=== PATIENT | female | born 2000 | race Caucasian/White ===

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

== ENCOUNTER 2022-01-07 12:34 | Emergency (ER) | payer BC, MEDICAID ==
--- NOTE | 2022-01-07 13:49 | XRAY ---
Indication: Abdomen pain. Two-dimensional transabdominal pelvic sonogram performed. Comparison: November 05, 2018 Urinary bladder not adequately distended producing poor acoustic window. Uterus anteverted measuring 6.5 x 2.8 x 3.4 cm. No focal solid/cystic uterine mass. Endometrial stripe measures 4.5 mm. No endometrial cavity mass or fluid collection. Right ovary measures 2.2 x 2.8 x 2.6 cm and the left measures 2.3 x 1.9 x 2.1 cm. Normal color perfusion bilaterally. No suspicious adnexal mass or free fluid. Impression: Grossly negative transabdominal pelvic sonogram. Patient refused transvaginal sonogram.
[2022-01-07 14:16] LABS: ALBUMIN 4.2 g/dL (3.5-5.0); ALKALINE PHOSPHATASE 73 U/L (38-126); ANION GAP 11.5 MEQ/L (5-15); BLOOD UREA NITROGEN 10 mg/dL (7-17); CHLORIDE 106 mmol/L (98-107); Calcium 9.4 mg/dL (8.4-10.2); Carbon Dioxide 24 mmol/L (22-30); Creatinine 1 0.56 mg/dL (0.52-1.04); EST GLOMERULAR FILTRATION RATE > 60.0 ML/MIN; Glucose 102 mg/dL (74-106); Potassium 3.4 mmol/L (3.5-5.1); SGOT/AST 17 U/L (14-36); SGPT/ALT 15 U/L (0-35); SODIUM 138 mmol/L (137-145); Total Protein 7.3 g/dL (6.3-8.2)
[2022-01-07 14:27] LABS: Appearance CLOUDY (CLEAR); Bilirubin SMALL (NEGATIVE); Glucose NEGATIVE (NEGATIVE); Specific Gravity 1.025 (1.005-1.025)
[2022-01-07 14:28] LABS: Dipstick done @ ? MAIN LAB; Ketones TRACE (NEGATIVE); Nitrite POSITIVE (NEGATIVE); Ph 8.5 (5-6); Protein,Urine Dip 100 (Negative); RBC LARGE Ery/ul (0-5); Urobilinogen 1 mg/dL (0-1)
[2022-01-07] MEDS ORDERED: MORPHINE SULFATE 4 MG INJ IV ONE (14:30)
[2022-01-07 14:32] LABS: Epithelial Cells RARE /HPF (FEW); Mucus SLIGHT /HPF (NEGATIVE); WBC 51-100 /HPF (0-5)
[2022-01-07] MEDS ORDERED: MORPHINE SULFATE 4 MG INJ ONE (14:32)
[2022-01-07 14:50] LABS: Absolute Neutrophil Ct (ANC) 11.48 (1.4-6.9); Basophil (Absolute #) 0.02 (0-0.4); Eosinophil % 0.4 % (0.00-5.0); Eosinophil (Absolute #) 0.06 (0-0.5); Hematocrit 41.2 % (35-47); Hemoglobin 14.1 gm/dl (12.0-16.0); Lymphocyte (Absolute #) 1.68 (1.0-4.6); Lymphocytes % 11.8 % (24.0-44.0); Mean Cell Volume 97.2 fl (78-100); Mean Corpuscular Hemoglobin 33.3 pg (26-32); Mean Corpuscular Hgb Concent. 34.2 g/dl (32-36); Mean Platelet Volume 12.2 fl (7.5-11.0); Monocyte (Absolute #) 1.05 (0.0-1.3); Monocytes % 7.3 % (0.0-12.0); Neutrophil % 80.4 % (36.0-66.0); Platelet Count 244 K/mm3 (150-450); Red Blood Count 4.24 M/mm3 (4.1-5.4); Red Cell Distribution Width 12.4 % (11.5-14.0); White Blood Count 14.3 K/mm3 (4.0-10.5)
[2022-01-07 14:54] LABS: RBC >101 /HPF (0-2)
[2022-01-07 14:55] LABS: Urine Cultured Indicated? YES
--- NOTE | 2022-01-07 14:57 | ERPHSYRPT ---
- History of Present Illness Time Seen by Provider: 01/07/22 13:15 Historian: patient Exam Limitations: no limitations Patient Subjective Stated Complaint: Pelvic pain Triage Nursing Assessment: Patient brought back to ED via w/c and transferred se lf to bed. Patient A+O X3. Patient's skin pink, warm and dry. Patient complains of pelvic pain that started 3 hours ago constant sharp pain. Patient states she started per menstrual cycle last night. Patient denies N/V or diarrhea. Patient complains of lower pelvic pain 9/10 constant sharp pain. Physician History: Patient is an 20-year-old female presents to emergency department for evaluation of pelvic pain. Patient states pelvic pain started approximately 3 hours prior to arrival. She advises that she started her period last night. Pain described as a constant sharp sensation. No radiation. Pain rated 9 out of 10. No trauma no fever. No recent sexual activity. Patient denies abdominal pain. No nausea or vomiting. No diarrhea. No rash. No chest pain or shortness of breath. Symptoms are constant. Symptoms are moderate in intensity. Palpation reproduces pain. Patient voices no other complaints or concerns at this time. Timing/Duration: today Activities at Onset: none Quality: sharpness Abdominal Pain Onset Location: other (Pelvic pain) Pain Radiation: no radiation Severity of Pain-Max: moderate Severity of Pain-Current: mild Modifying Factors: Improves With: nothing Associated Symptoms: other (Vaginal bleeding) Previous symptoms: no prior history Allergies/Adverse Reactions: orange (food color) Adverse Reaction (Mild, Verified 01/07/22 13:04) Vomiting Hx Tetanus, Diphtheria Vaccination/Date Given: Yes Hx Influenza Vaccination/Date Given: No Hx Pneumococcal Vaccination/Date Given: No Immunizations Up to Date: Yes Travel Risk - International Travel Have you traveled outside of the country in past 3 weeks: No - Coronavirus Screening Are you exhibiting any of the following symptoms?: No Close contact with a COVID-19 positive Pt in past 14-21 Days: No - Vaccine Status Have you recieved a Covid-19 vaccination: No - Review of Systems Constitutional: No Symptoms, No Fever, No Chills Eyes: No Symptoms Ears, Nose, & Throat: No Symptoms Respiratory: No Symptoms, No Cough, No Dyspnea Cardiac: No Symptoms, No Chest Pain, No Edema, No Syncope Abdominal/Gastrointestinal: No Symptoms, No Abdominal Pain, No Nausea, No Vomi ting, No Diarrhea Genitourinary Symptoms: No Symptoms, No Dysuria Musculoskeletal: No Symptoms, No Back Pain, No Neck Pain Skin: No Symptoms, No Rash Neurological: No Symptoms, No Dizziness, No Focal Weakness, No Sensory Changes Psychological: No Symptoms Endocrine: No Symptoms Hematologic/Lymphatic: No Symptoms Immunological/Allergic: No Symptoms All Other Systems: Reviewed and Negative - Past Medical History Pertinent Past Medical History: Yes Neurological History: No Pertinent History ENT History: No Pertinent History Cardiac History: No Pertinent History Respiratory History: Asthma Endocrine Medical History: No Pertinent History Musculoskeletal History: No Pertinent History GI Medical History: No Pertinent History History: No Pertinent History Psycho-Social History: Anxiety, Depression, Other Female Reproductive Disorders: No Pertinent History Other Medical History: HX OF CYST REMOVALS TAILBONE, GROIN AND ARMPIT. times 2, has Hx of recurring cysts,PTSD, - Past Surgical History Past Surgical History: Yes Neuro Surgical History: No Pertinent History Cardiac: No Pertinent History Respiratory: No Pertinent History Gastrointestinal: No Pertinent History Genitourinary: No Pertinent History Musculoskeletal: No Pertinent History Female Surgical History: Other Other Surgical History: tail bone,armpit, cyst removal times 3 - Social History Smoking Status: Current every day smoker How long have you smoked: 1 yr Exposure to second hand smoke: Yes Drug Use: none Patient Lives Alone: No Significant Family History: no pertinent family hx - Female History Hx Last Menstrual Period: currently Hx Now: No - Nursing Vital Signs Nursing Vital Signs: Initial Vital Signs Temperature 97.0 F 01/07/22 13:04 Pulse Rate 79 01/07/22 13:04 Respiratory Rate 18 01/07/22 13:04 Blood Pressure 141/77 01/07/22 13:04 O2 Sat by Pulse Oximetry 100 01/07/22 13:04 Pain Scale Pain Intensity 8 - Physical Exam General Appearance: no apparent distress, alert Eye Exam: PERRL/EOMI, eyes nml inspection Ears, Nose, Throat Exam: normal ENT inspection, TMs normal, pharynx normal, moist mucous membranes Neck Exam: normal inspection, non-tender, supple, full range of motion Respiratory Exam: normal breath sounds, lungs clear, airway intact, No respiratory distress Cardiovascular Exam: regular rate/rhythm, normal heart sounds, normal peripheral pulses Gastrointestinal/Abdomen Exam: soft, normal bowel sounds, No tenderness, No mass Pelvic Exam: normal external exam, vaginal bleeding, No adnexal tenderness, No adnexal mass, No cervical motion tenderness, No uterine tenderness, No vaginal discharge Back Exam: normal inspection, normal range of motion, No CVA tenderness, No vertebral tenderness Extremity Exam: normal inspection, normal range of motion, pelvis stable Neurologic Exam: alert, oriented x 3, cooperative, pump mechanic II-XII nml as tested, normal mood/affect, nml cerebellar function, sensation nml, No motor deficits Skin Exam: normal color, warm, dry Lymphatic Exam: No adenopathy SpO2 Interpretation: normal SpO2: 100 O2 Delivery: Room Air - Course Nursing assessment & vital signs reviewed: Yes - Radiology Ultrasound Exam Pelvis Ultrasound: discussed w/radiologist (Per discussion with cnc grinder ultrasound pelvis is negative. No torsion.) Ordered Tests: Active Orders 24 hr Category Date Time Status PELVIC [US] Stat Exams 01/07/22 13:06 Completed CBC W DIFF Stat Lab 01/07/22 14:02 Completed CMP Stat Lab 01/07/22 14:02 Completed CULTURE,URINE Stat Lab 01/07/22 13:09 Received HCG,QUALITATIVE URINE Stat Lab 01/07/22 13:09 Completed Medication Summary Discontinued Medications Generic Name Dose Route Start Last Admin Trade Name Freq PRN Reason Stop Dose Admin Ceftriaxone Sodium/Dextrose 1 g in 50 mls @ 100 mls/hr 01/07/22 15:00 01/07/22 15:38 Rocephin 1 Gm-D5w 50 Ml Bag IV 01/07/22 15:29 Infused STAT STA Infusion Ceftriaxone Sodium/Dextrose Confirm 01/07/22 15:03 Rocephin 1 Gm-D5w 50 Ml Bag Administered 01/07/22 15:04 Dose 1 g in 50 mls @ ud IV .STK-MED ONE Ketorolac Tromethamine 30 mg 01/07/22 15:39 Ketorolac Tromethamine 30 Mg/Ml Inj IV 01/07/22 15:40 STAT ONE Morphine Sulfate 4 mg 01/07/22 14:30 01/07/22 14:33 Morphine Sulfate 4 Mg/Ml Injection IV 01/07/22 14:31 4 mg STAT ONE Administration Morphine Sulfate Confirm 01/07/22 14:32 Morphine Sulfate 4 Mg/Ml Injection Administered 01/07/22 14:33 Dose 4 mg .ROUTE .STK-MED ONE Potassium Chloride 40 meq 04/18/22 15:01 01/07/22 15:05 Potassium Chloride 10 Meq Tablet PO 01/07/22 15:02 40 meq STAT ONE Administration Potassium Chloride Confirm 01/07/22 15:03 Potassium Chloride 10 Meq Tablet Administered 01/07/22 15:04 Dose 40 meq PO .K[facility] ONE Lab/Rad Data: Laboratory Result Diagrams 01/07/22 14:02 01/07/22 14:02 Laboratory Results 01/07/22 01/07/22 01/07/22 Range/Units 14:02 14:02 13:09 WBC 14.3 H (4.0-10.5) K/mm3 RBC 4.24 (4.1-5.4) M/mm3 Hgb 14.1 (12.0-16.0) gm/dl Hct 41.2 (35-47) % MCV 97.2 (78-100) fl MCH 33.3 H (26-32) pg MCHC 34.2 (32-36) g/dl RDW 12.4 (11.5-14.0) % Plt Count 244 (150-450) K/mm3 MPV 12.2 H (7.5-11.0) fl Gran % 80.4 H (36.0-66.0) % Eos # (Auto) 0.06 (0-0.5) Absolute Lymphs (auto) 1.68 (1.0-4.6) Absolute Monos (auto) 1.05 (0.0-1.3) Lymphocytes % 11.8 L (24.0-44.0) % Monocytes % 7.3 (0.0-12.0) % Eosinophils % 0.4 (0.00-5.0) % Basophils % 0.1 (0.0-0.4) % Absolute Granulocytes 11.48 H (1.4-6.9) Basophils # 0.02 (0-0.4) Sodium 138 (137-145) mmol/L Potassium 3.4 L (3.5-5.1) mmol/L Chloride 106 (98-107) mmol/L Carbon Dioxide 24 (22-30) mmol/L Anion Gap 11.5 (5-15) MEQ/L BUN 10 (7-17) mg/dL Creatinine 0.56 (0.52-1.04) mg/dL Estimated GFR > 60.0 ML/MIN Glucose 102 (74-106) mg/dL Calcium 9.4 (8.4-10.2) mg/dL Total Bilirubin 0.50 (0.2-1.3) mg/dL AST 17 (14-36) U/L ALT 15 (0-35) U/L Alkaline Phosphatase 73 (38-126) U/L Serum Total Protein 7.3 (6.3-8.2) g/dL Albumin 4.2 (3.5-5.0) g/dL Urinalys Dipstick Clnc Urine Color (YELLOW) Urine Appearance (CLEAR) Urine pH (5-6) Ur Specific [place] (1.005-1.025) POC Urine Protein Conf (Negative) Urine Ketones (NEGATIVE) Urine Nitrite (NEGATIVE) Urine Bilirubin (NEGATIVE) Urine Urobilinogen (0-1) mg/dL Urine Leukocytes (NEGATIVE) Urine WBC (Auto) (0-5) /HPF Urine RBC (Auto) (0-2) /HPF U Epithel Cells (Auto) (FEW) /HPF Urine Bacteria (Auto) (NEGATIVE) /HPF Urine RBC (0-5) Gal/ul Urine Mucus (Auto) (NEGATIVE) /HPF Ur Culture Indicated? Urine Glucose (NEGATIVE) mg/dL Urine HCG, Qual NEGATIVE (Negative) 01/07/22 Range/Units 13:09 WBC (4.0-10.5) K/mm3 RBC (4.1-5.4) M/mm3 Hgb (12.0-16.0) gm/dl Hct (35-47) % MCV (78-100) fl MCH (26-32) pg MCHC (32-36) g/dl RDW (11.5-14.0) % Plt Count (150-450) K/mm3 MPV (7.5-11.0) fl Gran % (36.0-66.0) % Eos # (Auto) (0-0.5) Absolute Lymphs (auto) (1.0-4.6) Absolute Monos (auto) (0.0-1.3) Lymphocytes % (24.0-44.0) % Monocytes % (0.0-12.0) % Eosinophils % (0.00-5.0) % Basophils % (0.0-0.4) % Absolute Granulocytes (1.4-6.9) Basophils # (0-0.4) Sodium (137-145) mmol/L Potassium (3.5-5.1) mmol/L Chloride (98-107) mmol/L Carbon Dioxide (22-30) mmol/L Anion Gap (5-15) MEQ/L BUN (7-17) mg/dL Creatinine (0.52-1.04) mg/dL Estimated GFR ML/MIN Glucose (74-106) mg/dL Calcium (8.4-10.2) mg/dL Total Bilirubin (0.2-1.3) mg/dL AST (14-36) U/L ALT (0-35) U/L Alkaline Phosphatase (38-126) U/L Serum Total Protein (6.3-8.2) g/dL Albumin (3.5-5.0) g/dL Urinalys Dipstick Clnc MAIN LAB Urine Color RED (YELLOW) Urine Appearance CLOUDY (CLEAR) Urine pH 8.5 (5-6) Ur Specific [place] 1.025 (1.005-1.025) POC Urine Protein Conf 100 (Negative) Urine Ketones TRACE (NEGATIVE) Urine Nitrite POSITIVE (NEGATIVE) Urine Bilirubin SMALL (NEGATIVE) Urine Urobilinogen 1 (0-1) mg/dL Urine Leukocytes NEGATIVE (NEGATIVE) Urine WBC (Auto) 51-100 (0-5) /HPF Urine RBC (Auto) >101 (0-2) /HPF U Epithel Cells (Auto) RARE (FEW) /HPF Urine Bacteria (Auto) NONE (NEGATIVE) /HPF Urine RBC LARGE (0-5) Gal/ul Urine Mucus (Auto) SLIGHT (NEGATIVE) /HPF Ur Culture Indicated? YES Urine Glucose NEGATIVE (NEGATIVE) mg/dL Urine HCG, Qual (Negative) - Progress Progress: improved Progress Note: Patient reassessed. Pain improved but states not she is got back pain. Patient received Toradol for pain control. Work-up reveals urinary tract infection. Rocephin administered in our ED. Potassium was slightly decreased. Patient received oral potassium. Pelvic exam since nonremarkable. GC chlamydia pending. Patient requesting discharge. Will discharge home. She agrees to follow-up with primary care doctor within 48 hours for evaluation. She voices no other complaints or concerns at this time. Portions of this note were created with voice recognition technology. There may be grammatical, spelling, punctuation or sound alike errors 01/07/22 15:41 Counseled pt/family regarding: lab results, diagnosis, need for follow-up, rad results - Departure Departure Disposition: Home Clinical Impression: Vaginal bleeding, Hypokalemia, Urinary tract infection Condition: Stable Critical Care Time: No Referrals: CANDY GUERRA [Primary Care Provider] - Follow up/PCP as directed Additional Instructions: Discharge/Care Plan JAQUELINE ACE was seen on 01/07/22 in the Emergency Room. The patient was counseled regarding Diagnosis,Lab results, Imaging studies, need for follow up and when to return to the Emergency Room. Prescriptions given: Discharge Note I have spoken with the patient and/or caregivers. I have explained the patient's condition, diagnosis and treatment plan based on the information available to me at this time. I have answered the patient's and/or caregiver's questions and addressed any concerns. The patient and/or caregivers have as good understanding of the patient's diagnosis, condition and treatment plan as can be expected at this point. The vital signs have been stable. The patient's condition is stable and appropriate for discharge from the emergency department. The patient will pursue further outpatient evaluation with the primary care physician or other designated or consulting physician as outlined in the discharge instructions. The patient and/or caregivers are agreeable to this plan of care and follow-up instructions have been explained in detail. The patient and/or caregivers have received these instruction. The patient/and or caregivers are aware that any significant change in condition or worsening of symptoms should prompt an immediate return to this or the closest emergency department or call 911. Prescriptions: Cephalexin Mh 500 mg [Keflex 500 mg] 500 mg PO TID #21 cap
[2022-01-07] MEDS ORDERED: ROCEPHIN 1 Gm-D5w 50 ml Bag** 1 G/50 ML IVPB IV STA (15:00)
[2022-01-07] MEDS ORDERED: Klor Con 10 MEQ PO ONE ×2 (15:01→15:03)
[2022-01-07] MEDS ORDERED: ROCEPHIN 1 Gm-D5w 50 ml Bag** 1 G/50 ML IVPB IV ONE (15:03)
[2022-01-07 15:11] VITALS: BP 107/67; PULSE 88
[2022-01-07] MEDS ORDERED: TORAdol 30 mg Injection IV ONE (15:39)
[2022-01-07] MEDS ORDERED: TORAdol 30 mg Injection ONE (15:43)
[2022-01-07 15:44] VITALS: O2SAT 100
[2022-01-07] MEDS ORDERED: NORCO 5/325 MG ONE (15:48)
[2022-01-07] MEDS ORDERED: NORCO 5/325 MG PO ONE (15:53)
[2022-01-08 09:49] LABS: CHLAMYDIA DNA NOT DETECTED (NEGATIVE); GC DNA Probe NOT DETECTED (NEGATIVE)
== END 2022-01-07 15:59 | disposition home or self-care (01) ==
LOC: ED 12:34
DX: N39.0 Urinary tract infection, site not specified (principal); E87.6 Hypokalemia; N93.9 Abnormal uterine and vaginal bleeding, unspecified; R10.2 Pelvic and perineal pain; Z72.0 Tobacco use
CPT/HCPCS: 36000; 36415; 76856; 80053; 81015; 84703; 85025; 87077; 87086; 87186; 87491; 87591; 96365; 96374; 99284; J0696; J1885; J2270; A9270-GY

== ENCOUNTER 2022-03-23 18:43 | Emergency (ER) | payer BC, MEDICAID ==
[2022-03-23] MEDS ORDERED: MORPHINE SULFATE 4 MG INJ IV ONE (19:10)
[2022-03-23] MEDS ORDERED: Zofran 4 MG/2 ML VIAL IV ONE (19:10)
--- NOTE | 2022-03-23 19:17 | ERPHSYRPT ---
- History of Present Illness Time Seen by Provider: 03/23/22 18:48 Patient Subjective Stated Complaint: Pt states that her lower abdomen feels like she is giving Triage Nursing Assessment: Pt was brought to the ER by her boyfriend, hypertensive, rates pain in abdomen as 10/10, flopping all over the bed and crying, hx of cysts but can't tell me if it feels the same, couldn't tell me if she is on her period although she states she is bleeding at this time, pt states that the pain woke her up at approx 1500 this afternoon, last bowel movement today and reports that it was normal, pulses normal, skin n/w/d Physician History: 22 years old female presented in the ER with chief complaint of sudden onset left lower quadrant/pelvic area sharp shooting cramping pain 10/10 intensity for almost 3 hours prior to arrival without any significant relieving factors. She took 2 Midol's with no relief at all. Patient does report having cramping with menstrual cycle but this pain is being more different and she also started having some bleeding. She did check her home test which was -2 days ago. Timing/Duration: hour(s) (3), sudden, worse Activities at Onset: rest Quality: cramping, sharpness Abdominal Pain Onset Location: LLQ Severity of Pain-Max: severe Severity of Pain-Current: severe Modifying Factors: Worsens With: movement, palpation Allergies/Adverse Reactions: orange (food color) Adverse Reaction (Mild, Verified 03/23/22 19:01) Vomiting ketorolac [From Toradol] Adverse Reaction (Verified 03/23/22 19:01) Home Medications: No Reportable Medications [No Reported Medications] 03/23/22 [History] Hx Tetanus, Diphtheria Vaccination/Date Given: Yes Hx Influenza Vaccination/Date Given: No Hx Pneumococcal Vaccination/Date Given: No Travel Risk - International Travel Have you traveled outside of the country in past 3 weeks: No - Coronavirus Screening Are you exhibiting any of the following symptoms?: No Close contact with a COVID-19 positive Pt in past 14-21 Days: No - Vaccine Status Have you recieved a Covid-19 vaccination: No - Review of Systems Constitutional: No Symptoms Ears, Nose, & Throat: No Symptoms Respiratory: No Symptoms Cardiac: No Symptoms Abdominal/Gastrointestinal: Abdominal Pain Genitourinary Symptoms: Vaginal Bleeding Musculoskeletal: No Symptoms Skin: No Symptoms Neurological: No Symptoms Psychological: No Symptoms Endocrine: No Symptoms Hematologic/Lymphatic: No Symptoms Immunological/Allergic: No Symptoms - Past Medical History Pertinent Past Medical History: Yes Neurological History: No Pertinent History ENT History: No Pertinent History Cardiac History: No Pertinent History Respiratory History: Asthma Endocrine Medical History: No Pertinent History Musculoskeletal History: No Pertinent History GI Medical History: No Pertinent History History: No Pertinent History Psycho-Social History: Anxiety, Depression, Other Female Reproductive Disorders: No Pertinent History Other Medical History: HX OF CYST REMOVALS TAILBONE, GROIN AND ARMPIT. times 2, has Hx of recurring cysts,PTSD, - Past Surgical History Past Surgical History: Yes Neuro Surgical History: No Pertinent History Cardiac: No Pertinent History Respiratory: No Pertinent History Gastrointestinal: No Pertinent History Genitourinary: No Pertinent History Musculoskeletal: No Pertinent History Female Surgical History: Other Other Surgical History: tail bone,armpit, cyst removal times 3 - Social History Smoking Status: Current every day smoker How long have you smoked: 1 yr Exposure to second hand smoke: Yes Drug Use: none Patient Lives Alone: No Significant Family History: no pertinent family hx - Female History Hx Last Menstrual Period: 03/23/2022 Hx Now: No - Nursing Vital Signs Nursing Vital Signs: Initial Vital Signs Temperature 97.4 F 03/23/22 18:52 Pulse Rate 78 03/23/22 18:52 Blood Pressure 149/75 03/23/22 18:52 O2 Sat by Pulse Oximetry 100 03/23/22 18:52 Pain Scale Pain Intensity 6 - Physical Exam General Appearance: no apparent distress, alert Eye Exam: PERRL/EOMI Ears, Nose, Throat Exam: normal ENT inspection Neck Exam: normal inspection, full range of motion Respiratory Exam: normal breath sounds, lungs clear Cardiovascular Exam: regular rate/rhythm, normal heart sounds Gastrointestinal/Abdomen Exam: soft, normal bowel sounds, tenderness (Left lower quadrant) Back Exam: normal inspection, normal range of motion Extremity Exam: normal inspection, normal range of motion Neurologic Exam: alert, oriented x 3, cooperative Skin Exam: normal color SpO2 Interpretation: normal SpO2: 100 O2 Delivery: Room Air Ordered Tests: Active Orders 24 hr Category Date Time Status IV Insertion STAT Care 03/23/22 19:10 Active PELVIS TRANS VAGINAL [US] Stat Exams 03/23/22 19:15 Taken CBC W DIFF Stat Lab 03/23/22 19:25 Completed CMP Stat Lab 03/23/22 19:20 Completed HCG,QUALITATIVE URINE Stat Lab 03/23/22 20:19 Ordered UA W/RFX CULTURE Stat Lab 03/23/22 20:19 Ordered Medication Summary Discontinued Medications Generic Name Dose Route Start Last Admin Trade Name Deirdre PRN Reason Stop Dose Admin Morphine Sulfate 4 mg 03/23/22 19:10 03/23/22 19:23 Morphine Sulfate 4 Mg/Ml Injection IV 03/23/22 19:11 4 mg STAT ONE Administration Morphine Sulfate Confirm 03/23/22 19:23 Morphine Sulfate 4 Mg/Ml Injection Administered 03/23/22 19:24 Dose 4 mg .ROUTE .STK-MED ONE Ondansetron HCl 4 mg 03/23/22 19:10 03/23/22 19:23 Ondansetron Hcl 4 Mg/2 Ml Vial IV 03/23/22 19:11 4 mg STAT ONE Administration Ondansetron HCl Confirm 03/23/22 19:23 Ondansetron Hcl 4 Mg/2 Ml Vial Administered 03/23/22 19:24 Dose 4 mg .ROUTE .STK-MED ONE Lab/Rad Data: Laboratory Result Diagrams 03/23/22 19:25 03/23/22 19:20 Laboratory Results 03/23/22 03/23/22 Range/Units 19:25 19:20 WBC 11.5 H (4.0-10.5) x10^3/uL RBC 4.34 (4.1-5.4) x10^6/uL Hgb 14.5 (12.0-16.0) g/dL Hct 41.6 (35-47) % MCV 95.9 (78-100) fL MCH 33.4 H (26-32) pg MCHC 34.9 (32-36) g/dL RDW 12.2 (11.5-14.0) % Plt Count 256 (150-450) x10^3/uL MPV 10.7 (7.5-11.0) fL Gran % 67.0 H (36.0-66.0) % Immature Gran % (Auto) 0.2 (0.00-0.4) % Nucleat RBC Rel Count 0.0 (0.00-0.1) % Eos # (Auto) 0.11 (0-0.5) x10^3/uL Immature Gran # (Auto) 0.02 (0.00-0.03) x10^3u/L Absolute Lymphs (auto) 2.81 (1.0-4.6) x10^3/uL Absolute Monos (auto) 0.81 (0.0-1.3) x10^3/uL Absolute Nucleated RBC 0.00 (0.00-0.01) x10^3u/L Lymphocytes % 24.4 (24.0-44.0) % Monocytes % 7.0 (0.0-12.0) % Eosinophils % 1.0 (0.00-5.0) % Basophils % 0.4 (0.0-0.4) % Absolute Granulocytes 7.71 H (1.4-6.9) x10^3/uL Basophils # 0.05 (0-0.4) x10^3/uL Sodium 139 (137-145) mmol/L Potassium 3.7 (3.5-5.1) mmol/L Chloride 107 (98-107) mmol/L Carbon Dioxide 20 L (22-30) mmol/L Anion Gap 15.2 H (5-15) MEQ/L BUN 6 L (7-17) mg/dL Creatinine 0.57 (0.52-1.04) mg/dL Estimated GFR > 60.0 ML/MIN Glucose 104 (74-106) mg/dL Calcium 9.5 (8.4-10.2) mg/dL Total Bilirubin 0.50 (0.2-1.3) mg/dL AST 20 (14-36) U/L ALT 19 (0-35) U/L Alkaline Phosphatase 89 (38-126) U/L Serum Total Protein 7.1 (6.3-8.2) g/dL Albumin 4.0 (3.5-5.0) g/dL - Progress Progress: improved Progress Note: 03/23/22 20:37 She is given morphine for symptomatic relief. Feeling much better on reevaluation. Ultrasound negative for tore urine or any other acute findings per preliminary report. Lab work grossly unremarkable. Patient is advised to take Tylenol/ibuprofen as needed and outpatient follow-up with [facility]. Discussed signs symptoms of worsening needing return to ER which she seems understanding. Stable for discharge. 03/23/22 20:38 Counseled pt/family regarding: lab results, diagnosis, need for follow-up, rad results - Departure Departure Disposition: Home Clinical Impression: Severe menstrual cramps Condition: Stable Critical Care Time: No Referrals: CANDY GUERRA [Primary Care Provider] - Follow Up with PCP/3 days Instructions: Menstrual Cramps (DC) Additional Instructions: Take Tylenol/ibuprofen as needed. Follow-up with primary care/[facility] THERAPY TEACHER for reevaluation. Return to ER for worsening.
[2022-03-23] MEDS ORDERED: MORPHINE SULFATE 4 MG INJ ONE (19:23)
[2022-03-23] MEDS ORDERED: Zofran 4 MG/2 ML VIAL ONE (19:23)
[2022-03-23 19:28] LABS: Absolute Neutrophil Ct (ANC) 7.71 x10^3/uL (1.4-6.9); Basophil (Absolute #) 0.05 x10^3/uL (0-0.4); Eosinophil (Absolute #) 0.11 x10^3/uL (0-0.5); Hematocrit 41.6 % (35-47); Hemoglobin 14.5 g/dL (12.0-16.0); Lymphocyte (Absolute #) 2.81 x10^3/uL (1.0-4.6); Lymphocytes % 24.4 % (24.0-44.0); Mean Cell Volume 95.9 fL (78-100); Mean Corpuscular Hemoglobin 33.4 pg (26-32); Mean Corpuscular Hgb Concent. 34.9 g/dL (32-36); Mean Platelet Volume 10.7 fL (7.5-11.0); Monocyte (Absolute #) 0.81 x10^3/uL (0.0-1.3); Platelet Count 256 x10^3/uL (150-450); Red Blood Count 4.34 x10^6/uL (4.1-5.4); Red Cell Distribution Width 12.2 % (11.5-14.0); White Blood Count 11.5 x10^3/uL (4.0-10.5)
[2022-03-23 19:46] LABS: ALKALINE PHOSPHATASE 89 U/L (38-126); ANION GAP 15.2 MEQ/L (5-15); BLOOD UREA NITROGEN 6 mg/dL (7-17); CHLORIDE 107 mmol/L (98-107); Calcium 9.5 mg/dL (8.4-10.2); Carbon Dioxide 20 mmol/L (22-30); Creatinine 1 0.57 mg/dL (0.52-1.04); EST GLOMERULAR FILTRATION RATE > 60.0 ML/MIN; Glucose 104 mg/dL (74-106); Potassium 3.7 mmol/L (3.5-5.1); SGOT/AST 20 U/L (14-36); SGPT/ALT 19 U/L (0-35); SODIUM 139 mmol/L (137-145); Total Protein 7.1 g/dL (6.3-8.2)
[2022-03-23 20:26] VITALS: BP 118/72; PULSE 61
[2022-03-23 20:38] VITALS: O2SAT 100
[2022-03-23 20:40] LABS: Appearance SLIGHTLY CLOUDY (CLEAR); Bacteria RARE /HPF (NEGATIVE); Bilirubin NEGATIVE (NEGATIVE); Epithelial Cells FEW /HPF (FEW); Glucose NEGATIVE (NEGATIVE); Mucus SLIGHT /HPF (NEGATIVE); RBC >101 /HPF (0-2)
[2022-03-23 20:41] LABS: Ketones NEGATIVE (NEGATIVE); Nitrite NEGATIVE (NEGATIVE); Ph 8.5 (5-6); Protein,Urine Dip TRACE (Negative); RBC LARGE Ery/ul (0-5); Urine Cultured Indicated? YES; Urobilinogen 0.2 mg/dL (0-1)
[2022-03-23 20:42] LABS: Dipstick done @ ? MAIN LAB
--- NOTE | 2022-03-23 21:44 | XRAY ---
Indication: Cramps. Two-dimensional transvaginal pelvic sonogram performed. Comparison: January 07, 2022. Uterus again anteverted measuring 5.5 x 2.7 x 2.9 cm. No focal solid/cystic uterine mass. Endometrial stripe measures 4.2 mm. No endometrial cavity mass or fluid collection. Right ovary measures 3.4 x 1.9 x 2.9 cm and the left measures 2.0 x 1.0 x 1.9 cm. Normal follicular cysts and perfusion bilaterally. No suspicious adnexal mass or free fluid. Impression: Continued negative transvaginal pelvic sonogram.
== END 2022-03-23 21:07 | disposition home or self-care (01) ==
LOC: ED 18:43
DX: N94.6 Dysmenorrhea, unspecified (principal); R10.32 Left lower quadrant pain; R10.2 Pelvic and perineal pain; Z72.0 Tobacco use; Z28.310 Unvaccinated for COVID-19
CPT/HCPCS: 36000; 36415; 76830; 80053; 81015; 81025; 85025; 87086; 96374; 96375; 99284; J2270; J2405

== ENCOUNTER 2022-12-18 06:18 | Emergency (ER) | payer BC, MEDICAID ==
--- NOTE | 2022-12-18 06:30 | ERPHSYRPT ---
- History of Present Illness Source: patient Exam Limitations: no limitations Timing/Duration: day(s) (2) Cough Quality/Degree: productive cough Possible Cause: occasional episodes Modifying Factors: Improves With: albuterol inhaler Associated Symptoms: cough, headache, nasal congestion, nasal drainage, shortness of breath, sinus infection, sore throat, wheezing, No fever, No chills, No chest pain/soreness, No earache Hx Tetanus, Diphtheria Vaccination/Date Given: Yes Hx Influenza Vaccination/Date Given: No Hx Pneumococcal Vaccination/Date Given: No <WENDY VELA - Last Filed: 12/18/22 07:08> <LEIGH LIN - Last Filed: 12/18/22 08:35> - History of Present Illness Time Seen by Provider: 12/18/22 06:30 Physician History: Presents with rhinorrhea, nasal congestion, headache, sore throat and cough, productive of yellow/green sputum Symptoms present for 2 days. + SOB/wheezing, hx of asthma, using Albuterol inhaler 3x per day for the past 2 days No fever. Patient is almost 12 weeks (WENDY VELA) Allergies/Adverse Reactions: orange (food color) Adverse Reaction (Mild, Verified 12/18/22 06:25) Vomiting ketorolac [From Toradol] Adverse Reaction (Verified 12/18/22 06:25) Home Medications: Buprenorphine HCl/Naloxone HCl [Suboxone 8 mg-2 mg Sl Film] 8 mg SL DAILY 12/18/22 [History] Vit 10/Iron Fum/Folic [Vitafol-Ob Caplet] 1 each PO DAILY 12/18/22 [History] Travel Risk - Vaccine Status Have you recieved a Covid-19 vaccination: No <WENDY VELA - Last Filed: 12/18/22 07:08> - Review of Systems Constitutional: No Symptoms Eyes: No Symptoms Ears, Nose, & Throat: Nose Congestion, Nose Discharge, Sinus Drainage, Throat Pain, Painful Swallowing, No Ear Pain, No Ear Discharge, No Hearing Changes Respiratory: Cough, Dyspnea, Wheezing Cardiac: No Symptoms Abdominal/Gastrointestinal: No Symptoms Genitourinary Symptoms: No Symptoms Musculoskeletal: No Symptoms Skin: No Symptoms Neurological: No Symptoms Psychological: No Symptoms Endocrine: No Symptoms Hematologic/Lymphatic: No Symptoms Immunological/Allergic: No Symptoms <WENDY VELA - Last Filed: 12/18/22 07:08> - Past Medical History Pertinent Past Medical History: Yes Neurological History: No Pertinent History ENT History: No Pertinent History Cardiac History: No Pertinent History Respiratory History: Asthma Endocrine Medical History: No Pertinent History Musculoskeletal History: No Pertinent History GI Medical History: No Pertinent History History: No Pertinent History Psycho-Social History: Anxiety, Depression, Other Female Reproductive Disorders: No Pertinent History Other Medical History: HX OF CYST REMOVALS TAILBONE, GROIN AND ARMPIT. times 2, has Hx of recurring cysts,PTSD, - Past Surgical History Past Surgical History: Yes Neuro Surgical History: No Pertinent History Cardiac: No Pertinent History Respiratory: No Pertinent History Gastrointestinal: No Pertinent History Genitourinary: No Pertinent History Musculoskeletal: No Pertinent History Female Surgical History: Other Other Surgical History: tail bone,armpit, cyst removal times 3 - Social History Smoking Status: Current every day smoker How long have you smoked: 1 yr Exposure to second hand smoke: Yes Drug Use: none Patient Lives Alone: No Significant Family History: no pertinent family hx <WENDY VELA - Last Filed: 12/18/22 07:08> - Physical Exam General Appearance: no apparent distress Eye Exam: eyes nml inspection Ears, Nose, Throat Exam: TMs normal, pharyngeal erythema, tonsillar exudate Neck Exam: supple, full range of motion, lymphadenopathy Respiratory Exam: airway intact, wheezing, No respiratory distress Cardiovascular Exam: regular rate/rhythm, normal heart sounds, capillary refill <2 sec Gastrointestinal/Abdomen Exam: soft, normal bowel sounds, No tenderness, No distention, No guarding Back Exam: normal inspection, normal range of motion Extremity Exam: normal inspection, normal range of motion, No swelling Neurologic Exam: alert, oriented x 3 Skin Exam: normal color, warm, dry Lymphatic Exam: adenopathy SpO2 Interpretation: normal O2 Delivery: Room Air <WENDY VELA - Last Filed: 12/18/22 07:08> - Nursing Vital Signs Nursing Vital Signs: Initial Vital Signs Temperature 98.3 F 12/18/22 06:26 Pulse Rate 100 H 12/18/22 06:26 Respiratory Rate 18 12/18/22 06:26 Blood Pressure 114/74 12/18/22 06:26 O2 Sat by Pulse Oximetry 95 12/18/22 06:26 Pain Scale Pain Intensity 8 - Course Nursing assessment & vital signs reviewed: Yes <WENDY VELA - Last Filed: 12/18/22 07:08> Ordered Tests: Active Orders 24 hr Category Date Time Status IV Insertion STAT Care 12/18/22 06:57 Active CBC W DIFF Stat Lab 12/18/22 07:15 Completed CMP Stat Lab 12/18/22 07:15 Completed Lactic Acid Stat Lab 12/18/22 06:57 Completed MAGNESIUM Stat Lab 12/18/22 07:15 Completed UA W/RFX UR CULTURE Stat Lab 12/18/22 08:21 Ordered Respiratory Therapy Assessment DAILY RT 12/18/22 07:20 Active Medication Summary Discontinued Medications Generic Name Dose Route Start Last Admin Trade Name Deirdre PRN Reason Stop Dose Admin Albuterol/Ipratropium 3 ml 12/18/22 06:57 12/18/22 07:17 Ipratropium/Albuterol Sulfate 3 Ml Ampul.Neb IH 12/18/22 06:58 3 ml STAT ONE Administration Albuterol/Ipratropium Confirm 12/18/22 07:11 Ipratropium/Albuterol Sulfate 3 Ml Ampul.Neb Administered 12/18/22 07:12 Dose 3 ml IH .STK-MED ONE Sodium Chloride 1,000 mls @ 999 mls/hr 12/18/22 06:57 12/18/22 07:23 Sodium Chloride 0.9% 1000 Ml IV 12/18/22 07:57 999 mls/hr .Q1H1M STA Administration Sodium Chloride Confirm 12/18/22 07:21 Sodium Chloride 0.9% 1000 Ml Administered 12/18/22 07:22 Dose 1,000 mls @ ud .ROUTE .STK-MED ONE Lab/Rad Data: Laboratory Result Diagrams 12/18/22 07:15 12/18/22 07:15 Laboratory Results 12/18/22 12/18/22 12/18/22 Range/Units 07:15 07:15 07:15 WBC 10.9 H (4.0-10.5) x10^3/uL RBC 3.83 L (4.1-5.4) x10^6/uL Hgb 12.6 (12.0-16.0) g/dL Hct 36.0 (35-47) % MCV 94.0 (78-100) fL MCH 32.9 H (26-32) pg MCHC 35.0 (32-36) g/dL RDW 11.9 (11.5-14.0) % Plt Count 190 (150-450) x10^3/uL MPV 11.0 (7.5-11.0) fL Gran % 87.5 H (36.0-66.0) % Immature Gran % (Auto) 0.2 (0.00-0.4) % Nucleat RBC Rel Count 0.0 (0.00-0.1) % Eos # (Auto) 0.04 (0-0.5) x10^3/uL Immature Gran # (Auto) 0.02 (0.00-0.03) x10^3u/L Absolute Lymphs (auto) 0.74 L (1.0-4.6) x10^3/uL Absolute Monos (auto) 0.51 (0.0-1.3) x10^3/uL Absolute Nucleated RBC 0.00 (0.00-0.01) x10^3u/L Lymphocytes % 6.8 L (24.0-44.0) % Monocytes % 4.7 (0.0-12.0) % Eosinophils % 0.4 (0.00-5.0) % Basophils % 0.4 (0.0-0.4) % Absolute Granulocytes 9.56 H (1.4-6.9) x10^3/uL Basophils # 0.04 (0-0.4) x10^3/uL Sodium 136 L (137-145) mmol/L Potassium 3.5 (3.5-5.1) mmol/L Chloride 102 (98-107) mmol/L Carbon Dioxide 26 (22-30) mmol/L Anion Gap 11.9 (5-15) MEQ/L BUN 6 L (7-17) mg/dL Creatinine 0.47 L (0.52-1.04) mg/dL Estimated GFR > 60.0 ML/MIN Glucose 97 (74-106) mg/dL Lactic Acid (0.4-2.0) Calcium 9.3 (8.4-10.2) mg/dL Magnesium 1.9 (1.6-2.3) mg/dL Total Bilirubin 0.40 (0.2-1.3) mg/dL AST 20 (14-36) U/L ALT 20 (0-35) U/L Alkaline Phosphatase 60 (38-126) U/L Serum Total Protein 7.1 (6.3-8.2) g/dL Albumin 4.0 (3.5-5.0) g/dL Influenza Type A Ag NEGATIVE (NEGATIVE) Influenza Type B Ag NEGATIVE (NEGATIVE) RSV (PCR) NEGATIVE (NEGATIVE) SARS-CoV-2 (PCR) NEGATIVE (NEGATIVE) Group A Strep Antibody NOT DETECTED (NEGATIVE) 12/18/22 Range/Units 06:57 WBC (4.0-10.5) x10^3/uL RBC (4.1-5.4) x10^6/uL Hgb (12.0-16.0) g/dL Hct (35-47) % MCV (78-100) fL MCH (26-32) pg MCHC (32-36) g/dL RDW (11.5-14.0) % Plt Count (150-450) x10^3/uL MPV (7.5-11.0) fL Gran % (36.0-66.0) % Immature Gran % (Auto) (0.00-0.4) % Nucleat RBC Rel Count (0.00-0.1) % Eos # (Auto) (0-0.5) x10^3/uL Immature Gran # (Auto) (0.00-0.03) x10^3u/L Absolute Lymphs (auto) (1.0-4.6) x10^3/uL Absolute Monos (auto) (0.0-1.3) x10^3/uL Absolute Nucleated RBC (0.00-0.01) x10^3u/L Lymphocytes % (24.0-44.0) % Monocytes % (0.0-12.0) % Eosinophils % (0.00-5.0) % Basophils % (0.0-0.4) % Absolute Granulocytes (1.4-6.9) x10^3/uL Basophils # (0-0.4) x10^3/uL Sodium (137-145) mmol/L Potassium (3.5-5.1) mmol/L Chloride (98-107) mmol/L Carbon Dioxide (22-30) mmol/L Anion Gap (5-15) MEQ/L BUN (7-17) mg/dL Creatinine (0.52-1.04) mg/dL Estimated GFR ML/MIN Glucose (74-106) mg/dL Lactic Acid 1.5 (0.4-2.0) Calcium (8.4-10.2) mg/dL Magnesium (1.6-2.3) mg/dL Total Bilirubin (0.2-1.3) mg/dL AST (14-36) U/L ALT (0-35) U/L Alkaline Phosphatase (38-126) U/L Serum Total Protein (6.3-8.2) g/dL Albumin (3.5-5.0) g/dL Influenza Type A Ag (NEGATIVE) Influenza Type B Ag (NEGATIVE) RSV (PCR) (NEGATIVE) SARS-CoV-2 (PCR) (NEGATIVE) Group A Strep Antibody (NEGATIVE) <WENDY VELA - Last Filed: 12/18/22 07:08> - Progress Progress: improved, re-examined Air Movement: good Blood Culture(s) Obtained: No Antibiotics given: No Counseled pt/family regarding: lab results, diagnosis, need for follow-up <LEIGH LIN - Last Filed: 12/18/22 08:35> - Progress Progress Note: 12/18/22 07:08 Patient signed over to Dr. Lin at [id number]. (WENDY VELA) 12/18/22 07:29 Patient declines chest x-ray. 12/18/22 08:32 This patient's medical issue is 1 of moderate complexity. The level of complexity and the work-up performed is based on review of the patient's past medical history, review of the patient's medication list, review of the patient's drug allergies, review of the patient's history of present illness and physical findings on examination. The results were reviewed by me and I discussed these issues with the patient. Patient's symptoms could be related to seasonal allergies or possibly a viral illness. Patient is . I am advising her to take Tylenol for her sore throat pain. She may also use Benadryl for relief of cough and nasal drainage symptoms. She was also advised to follow-up with her primary care provider/ncr operator for further evaluation and management. (LEIGH LIN) Medical Desision Making - Discussion of managment Reviewed:: Test results Agreed on:: Treatment plan, need for follow-up - Diagnostic Testing Diagnostic test were ordered, analyzed, and reviewed by me: Yes - Risk of complications Low Risk: Low risk of morbidity from additional dx testing or treatment <LEIGH LIN - Last Filed: 12/18/22 08:35> <WENDY VELA - Last Filed: 12/18/22 07:08> - Departure Departure Disposition: Home Critical Care Time: No <LEIGH LIN - Last Filed: 12/18/22 08:35> - Departure Clinical Impression: Nasal congestion, Nasal drainage Condition: Stable Referrals: CANDY GUERRA [Primary Care Provider] - Follow up/PCP as directed Additional Instructions: Drink plenty of fluids. Use Tylenol for pain control. May use Benadryl for nasal drainage and cough relief. Follow-up with your OB/primary care provider today to make arranges for further evaluation and management in the next 3 to 5 days.
[2022-12-18] MEDS ORDERED: Sodium Chloride 0.9% 1000 ML 1,000 ML IV STA (06:57)
[2022-12-18] MEDS ORDERED: DUONEB 0.5-3 MG/3 ml Neb IH ONE ×2 (06:57→07:11)
[2022-12-18 07:19] LABS: Absolute Neutrophil Ct (ANC) 9.56 x10^3/uL (1.4-6.9); BASOPHIL % 0.4 % (0.0-0.4); Basophil (Absolute #) 0.04 x10^3/uL (0-0.4); Eosinophil % 0.4 % (0.00-5.0); Eosinophil (Absolute #) 0.04 x10^3/uL (0-0.5); Hemoglobin 12.6 g/dL (12.0-16.0); IMMATURE GRAN # 0.02 x10^3u/L (0.00-0.03); IMMATURE GRAN % 0.2 % (0.00-0.4); Lymphocyte (Absolute #) 0.74 x10^3/uL (1.0-4.6); Lymphocytes % 6.8 % (24.0-44.0); Mean Corpuscular Hemoglobin 32.9 pg (26-32); Monocyte (Absolute #) 0.51 x10^3/uL (0.0-1.3); Monocytes % 4.7 % (0.0-12.0); Neutrophil % 87.5 % (36.0-66.0); Platelet Count 190 x10^3/uL (150-450); Red Blood Count 3.83 x10^6/uL (4.1-5.4); Red Cell Distribution Width 11.9 % (11.5-14.0); White Blood Count 10.9 x10^3/uL (4.0-10.5)
[2022-12-18] MEDS ORDERED: Sodium Chloride 0.9% 1000 ML 1,000 ML ONE (07:21)
[2022-12-18 07:39] LABS: ALKALINE PHOSPHATASE 60 U/L (38-126); ANION GAP 11.9 MEQ/L (5-15); BLOOD UREA NITROGEN 6 mg/dL (7-17); CHLORIDE 102 mmol/L (98-107); Calcium 9.3 mg/dL (8.4-10.2); Carbon Dioxide 26 mmol/L (22-30); Creatinine 1 0.47 mg/dL (0.52-1.04); EST GLOMERULAR FILTRATION RATE > 60.0 ML/MIN; Glucose 97 mg/dL (74-106); MAGNESIUM 1.9 mg/dL (1.6-2.3); Potassium 3.5 mmol/L (3.5-5.1); SGOT/AST 20 U/L (14-36); SGPT/ALT 20 U/L (0-35); SODIUM 136 mmol/L (137-145); Total Protein 7.1 g/dL (6.3-8.2)
[2022-12-18 07:55] LABS: Group A Strep NOT DETECTED (NEGATIVE)
[2022-12-18 08:07] LABS: INFLUENZA A NEGATIVE (NEGATIVE); INFLUENZA B NEGATIVE (NEGATIVE); RESPIRATORY SYNCTIAL VIRUS NEGATIVE (NEGATIVE); SARS-CoV-2 Xpert Express NEGATIVE (NEGATIVE)
[2022-12-18] MEDS ORDERED: LOPRESSOR INJECTION IV ONE (09:06)
[2022-12-18 09:14] LABS: Appearance Clear (Clear); Bacteria Rare /HPF (None Seen); Bilirubin Negative (Negative); Blood Negative (Negative); Epithelial Cells None Seen /HPF (None Seen); Glucose, Urine Negative (Negative); Hyaline Casts NONE SEEN /LPF (0-2); Ketones Negative (Negative); Leukocyte Esterase Trace (Negative); Nitrite Negative (Negative); Protein,Urine Dip Negative (Negative); RBC 0-2 /HPF (0-5)
[2022-12-18 09:17] LABS: ADD URINE CULTURE? NO (NO)
[2022-12-18 09:36] VITALS: BP 119/65; PULSE 70; O2SAT 97
== END 2022-12-18 09:36 | disposition home or self-care (01) ==
LOC: ED 06:18
DX: R09.81 Nasal congestion (principal); J34.89 Other specified disorders of nose and nasal sinuses; R51.9 Headache, unspecified; J02.9 Acute pharyngitis, unspecified; R05.1 Acute cough; Z79.891 Long term (current) use of opiate analgesic; Z28.310 Unvaccinated for COVID-19; Z72.0 Tobacco use; Z33.1 Pregnant state, incidental
CPT/HCPCS: 0241U; 36000; 36415; 80053; 81001; 83605; 83735; 85025; 87651; 94640; 96360; 99284; A9270-GY

== ENCOUNTER 2024-01-21 23:30 | Emergency (ER) | payer BC, MEDICAID | END 2024-01-22 00:23 | disposition left against medical advice (07) | LOC: ED 23:30 | DX: Z53.21 Procedure and treatment not carried out due to patient leaving prior to being seen by health care provider (principal) ==

== ENCOUNTER 2024-06-27 05:03 | Emergency (ER) | payer BC, MEDICAID, OTHER ==
[2024-06-27 05:20] VITALS: RESP 18; TEMP 97.1
[2024-06-27 05:39] LABS: Appearance Cloudy (Clear); Bacteria Moderate /HPF (None Seen); Bilirubin Negative (Negative); Blood Negative (Negative); Epithelial Cells Moderate /HPF (None Seen); Glucose, Urine Negative (Negative); Hyaline Casts NONE SEEN /LPF (0-2); Ketones Negative (Negative); Leukocyte Esterase Small (Negative); Nitrite Negative (Negative); Protein,Urine Dip Negative (Negative); RBC 0-2 /HPF (0-5); Specific Gravity 1.015 (1.005-1.030); Urobilinogen 0.2 mg/dL (0.2)
--- NOTE | 2024-06-27 05:51 | ERPHSYRPT ---
- History of Present Illness Historian: patient Exam Limitations: no limitations Patient Subjective Stated Complaint: pt states that she is having back pain Triage Nursing Assessment: pt ambulated into the er; pt is axo x4; c/o cristiane flank pain; pt states 9/10 pain to cristiane flank region; tenderness present to cristiane flank region; abd soft, round, tender to RUQ; active bowel sounds in all quads; c/o N/V, denies diarrhea; skin PDW; no respiratory distress present; vitals wnl Timing/Duration: day(s) (4) Activities at Onset: none Quality: sharpness, stabbing Abdominal Pain Onset Location: RUQ Pain Radiation: back Severity of Pain-Max: moderate Severity of Pain-Current: moderate Modifying Factors: Improves With: nothing. Worsens With: movement, palpation, vomiting Associated Symptoms: back, loss of appetite, nausea, vomiting, No chest pain, No diaphoresis, No diarrhea, No fever/chills, No neck pain, No shortness of breath Previous symptoms: no prior history Hx Tetanus, Diphtheria Vaccination/Date Given: No (unknown) Hx Influenza Vaccination/Date Given: No Hx Pneumococcal Vaccination/Date Given: No <WENDY VELA - Last Filed: 06/27/24 06:10> <DUTCH VILLA - Last Filed: 06/27/24 18:43> - History of Present Illness Time Seen by Provider: 06/27/24 05:51 Physician History: The patient presents with severe pain located under the rib cage, which has been ongoing for approximately three to four days. The pain is intermittent and radiates to the upper back. The discomfort is exacerbated by pressure on the area, such as leaning on it or wearing tight clothing. The patient denies any significant correlation between food intake and the pain. However, during episodes of pain, if the patient has eaten recently, they experience vomiting. This has occurred on multiple occasions, with up to four or five episodes of vomiting in a single day. The patient also reports a slight burning sensation during urination, which was experienced a few days prior to the consultation. However, the patient denies any presence of blood in the urine. In an attempt to manage the pain, the patient has been alternating between Tylenol and Aleve, but reports no significant relief from either medication. The patient also takes Suboxone regularly, with the last dose taken on the morning of the consultation. (WENDY VELA) Allergies/Adverse Reactions: orange (food color) Adverse Reaction (Mild, Verified 06/27/24 05:10) Vomiting ketorolac [From Toradol] Adverse Reaction (Verified 06/27/24 05:10) Home Medications: Buprenorphine HCl/Naloxone HCl [Suboxone 8 mg-2 mg Sl Film] 8 mg SL DAILY [History] Travel Risk - International Travel Have you traveled outside of the country in past 3 weeks: No - Emerging Infectious Disease Are you exhibiting symptoms associated with any current EIDs: Yes Symptoms: Abdominal Pain, Vomitting <WENDY VELA - Last Filed: 06/27/24 06:10> - Review of Systems All Other Systems: Reviewed and Negative <WENDY VELA - Last Filed: 06/27/24 06:10> - Past Medical History Pertinent Past Medical History: Yes Neurological History: No Pertinent History ENT History: No Pertinent History Cardiac History: No Pertinent History Respiratory History: Asthma Endocrine Medical History: No Pertinent History Musculoskeletal History: No Pertinent History GI Medical History: No Pertinent History History: No Pertinent History Psycho-Social History: Anxiety, Depression, Other Female Reproductive Disorders: No Pertinent History Other Medical History: HX OF CYST REMOVALS TAILBONE, GROIN AND ARMPIT. times 2, has Hx of recurring cysts,PTSD, - Past Surgical History Past Surgical History: Yes Neuro Surgical History: No Pertinent History Cardiac: No Pertinent History Respiratory: No Pertinent History Gastrointestinal: No Pertinent History Genitourinary: No Pertinent History Musculoskeletal: No Pertinent History Female Surgical History: Other Other Surgical History: tail bone,armpit, cyst removal times 3 Significant Family History: no pertinent family hx - Female History Hx Last Menstrual Period: 2 weeks Hx Now: No - Social History Smoking Status: Current every day smoker How long have you smoked: 1 yr Exposure to second hand smoke: Yes Drug Use: none Patient Lives Alone: No - Social Determinants of Health Will the patient participate in the screening: Yes Do you worry about a steady place to live?: No Do you have any problems with any of the following?: No known problems In the past 12 months,have you had to go without utilities?: No Transportation Issues: No Has anyone in your support network made you feel unsafe?: No Have you or anyone in your house had to go without enough: No <MIRIANWENDY Prieto - Last Filed: 06/27/24 06:10> - Physical Exam General Appearance: no apparent distress, obese Neck Exam: normal inspection, supple, full range of motion Respiratory Exam: normal breath sounds, airway intact, No respiratory distress Cardiovascular Exam: regular rate/rhythm, capillary refill <2 sec, No edema Gastrointestinal/Abdomen Exam: soft, tenderness (RUQ), guarding, rebound (+ Cueto), No distention, No mass Back Exam: No CVA tenderness Neurologic Exam: alert, oriented x 3, cooperative Skin Exam: normal color, warm, dry SpO2 Interpretation: normal SpO2: 99 O2 Delivery: Room Air <WENDY VELA - Last Filed: 06/27/24 06:10> - Nursing Vital Signs Nursing Vital Signs: Initial Vital Signs Temperature 97.1 F 06/27/24 05:11 Pulse Rate 73 06/27/24 05:11 Respiratory Rate 18 06/27/24 05:11 Blood Pressure 139/76 06/27/24 05:11 O2 Sat by Pulse Oximetry 99 06/27/24 05:11 Pain Scale Pain Intensity 4 - Course Nursing assessment & vital signs reviewed: Yes <WENDY VELA - Last Filed: 06/27/24 06:10> Ordered Tests: Active Orders 24 hr Category Date Time Status IV Insertion STAT Care 06/27/24 06:03 Completed NPO (ED) STAT Care 06/27/24 06:03 Completed ABDOMEN AND PELVIS W/0 CONTRAS [CT] Stat Exams 06/27/24 06:04 Completed CBC W DIFF Stat Lab 06/27/24 06:15 Completed CMP Stat Lab 06/27/24 06:15 Completed CULTURE,URINE Stat Lab 06/27/24 05:16 Received HCG QUALITATIVE, SERUM Stat Lab 06/27/24 06:15 Completed LIPASE Stat Lab 06/27/24 06:15 Completed Lactic Acid Stat Lab 06/27/24 06:15 Completed UA W/RFX UR CULTURE Stat Lab 06/27/24 05:16 Completed Urine Triage Profile Stat Lab 06/27/24 06:08 Completed Medication Summary Discontinued Medications Generic Name Dose Route Start Last Admin Trade Name Freq PRN Reason Stop Dose Admin Droperidol 1.25 mg 06/27/24 06:03 06/27/24 06:19 Droperidol 5 Mg/2 Ml Vial IV 06/27/24 06:04 1.25 mg STAT ONE Administration Droperidol Confirm 06/27/24 06:18 Droperidol 5 Mg/2 Ml Vial Administered 06/27/24 06:19 Dose 5 mg .ROUTE .STK-MED ONE Sodium Chloride 1,000 mls @ 999 mls/hr 06/27/24 06:03 06/27/24 07:22 Sodium Chloride 0.9% 1000 Ml IV 06/27/24 07:03 Infused .Q1H1M STA Infusion Ceftriaxone Sodium 1 gm in 100 mls @ 200 mls/hr 06/27/24 06:06 06/27/24 06:52 Rocephin 1 Gm / 100 Ml Nacl IV 06/27/24 06:35 Infused STAT ONE Infusion Sodium Chloride Confirm 06/27/24 06:18 Sodium Chloride 0.9% 1000 Ml Administered 06/27/24 06:19 Dose 1,000 mls @ ud .ROUTE .STK-MED ONE Ceftriaxone Sodium Confirm 06/27/24 06:18 Rocephin 1 Gm / 100 Ml Nacl Administered 06/27/24 06:19 Dose 1 gm in 100 mls @ ud IV .STK-MED ONE Lab/Rad Data: Laboratory Result Diagrams 06/27/24 06:15 06/27/24 06:15 Laboratory Results 06/27/24 06/27/24 06/27/24 Range/Units 06:15 06:15 06:15 WBC (3.98-10.04) x10^3/uL RBC (3.93-5.22) x10^6/uL Hgb (11.2-15.7) g/dL Hct (34.1-44.9) % MCV (79.4-94.8) fL MCH (25.6-32.2) pg MCHC (32.2-35.5) g/dL RDW (11.7-14.4) % Plt Count (182-369) x10^3/uL MPV (9.4-12.3) fL Gran % (34.0-71.1) % Immature Gran % (Auto) (0.001-0.429) % Nucleat RBC Rel Count (0.00-0.2) % Eos # (Auto) (0.04-0.36) x10^3/uL Immature Gran # (Auto) (0.001-0.031) x10^3u/L Absolute Lymphs (auto) (1.18-3.74) x10^3/uL Absolute Monos (auto) (0.24-0.86) x10^3/uL Absolute Nucleated RBC (0.00-0.012) x10^3u/L Lymphocytes % (19.3-51.7) % Monocytes % (4.7-12.5) % Eosinophils % (0.7-5.8) % Basophils % (0.1-1.2) % Absolute Granulocytes (1.56-6.13) x10^3/uL Basophils # (0.01-0.08) x10^3/uL Sodium 140 (135-145) mmol/L Potassium 4.1 (3.5-5.1) mmol/L Chloride 105 (98-107) mmol/L Carbon Dioxide 25 (22-30) mmol/L Anion Gap 14.1 (5-15) MEQ/L BUN 11 (7-17) mg/dL Creatinine 0.61 (0.52-1.04) mg/dL Estimated GFR 129.6 ML/MIN Glucose 105 (74-106) mg/dL Lactic Acid 1.1 (0.4-2.0) Calcium 9.4 (8.4-10.2) mg/dL Total Bilirubin 0.50 (0.2-1.3) mg/dL AST 75 H (14-36) U/L ALT 51 H (0-35) U/L Alkaline Phosphatase 86 (38-126) U/L Serum Total Protein 7.1 (6.3-8.2) g/dL Albumin 4.1 (3.5-5.0) g/dL Lipase 79 (23-300) U/L Serum HCG, Qual NEGATIVE (NEGATIVE) Urine Color (Yellow) Urine Appearance (Clear) Urine pH (4.6-8.0) Ur Specific [place] (1.005-1.030) Urine Protein (Negative) Urine Glucose (UA) (Negative) mg/dL Urine Ketones (Negative) Urine Blood (Negative) Urine Nitrite (Negative) Urine Bilirubin (Negative) Urine Urobilinogen (0.2) mg/dL Ur Leukocyte Esterase (Negative) U Hyaline Cast (Auto) (0-2) /LPF Urine Microscopic RBC (0-5) /HPF Urine Microscopic WBC (0-5) /HPF Ur Epithelial Cells (None Seen) /HPF Urine Bacteria (None Seen) /HPF Urine Culture Reflexed (NO) Urine Opiates Level (NEGATIVE) Ur Methadone (NEGATIVE) Urine Barbiturates (NEGATIVE) Ur Phencyclidine (PCP) (NEGATIVE) Urine Amphetamine (NEGATIVE) U Benzodiazepine Level (NEGATIVE) Urine Cocaine (NEGATIVE) Urine Marijuana (THC) (NEGATIVE) Chlamydia DNA Probe (NEGATIVE) N.gonorrhoeae DNA Probe (NEGATIVE) 06/27/24 06/27/24 06/27/24 Range/Units 06:15 06:08 06:03 WBC 11.6 H (3.98-10.04) x10^3/uL RBC 4.14 (3.93-5.22) x10^6/uL Hgb 13.5 (11.2-15.7) g/dL Hct 39.2 (34.1-44.9) % MCV 94.7 (79.4-94.8) fL MCH 32.6 H (25.6-32.2) pg MCHC 34.4 (32.2-35.5) g/dL RDW 12.0 (11.7-14.4) % Plt Count 238 (182-369) x10^3/uL MPV 11.3 (9.4-12.3) fL Gran % 66.5 (34.0-71.1) % Immature Gran % (Auto) 0.3 (0.001-0.429) % Nucleat RBC Rel Count 0.0 (0.00-0.2) % Eos # (Auto) 0.60 H (0.04-0.36) x10^3/uL Immature Gran # (Auto) 0.04 H (0.001-0.031) x10^3u/L Absolute Lymphs (auto) 2.60 (1.18-3.74) x10^3/uL Absolute Monos (auto) 0.55 (0.24-0.86) x10^3/uL Absolute Nucleated RBC 0.00 (0.00-0.012) x10^3u/L Lymphocytes % 22.4 (19.3-51.7) % Monocytes % 4.7 (4.7-12.5) % Eosinophils % 5.2 (0.7-5.8) % Basophils % 0.9 (0.1-1.2) % Absolute Granulocytes 7.73 H (1.56-6.13) x10^3/uL Basophils # 0.10 H (0.01-0.08) x10^3/uL Sodium (135-145) mmol/L Potassium (3.5-5.1) mmol/L Chloride (98-107) mmol/L Carbon Dioxide (22-30) mmol/L Anion Gap (5-15) MEQ/L BUN (7-17) mg/dL Creatinine (0.52-1.04) mg/dL Estimated GFR ML/MIN Glucose (74-106) mg/dL Lactic Acid (0.4-2.0) Calcium (8.4-10.2) mg/dL Total Bilirubin (0.2-1.3) mg/dL AST (14-36) U/L ALT (0-35) U/L Alkaline Phosphatase (38-126) U/L Serum Total Protein (6.3-8.2) g/dL Albumin (3.5-5.0) g/dL Lipase (23-300) U/L Serum HCG, Qual (NEGATIVE) Urine Color (Yellow) Urine Appearance (Clear) Urine pH (4.6-8.0) Ur Specific [place] (1.005-1.030) Urine Protein (Negative) Urine Glucose (UA) (Negative) mg/dL Urine Ketones (Negative) Urine Blood (Negative) Urine Nitrite (Negative) Urine Bilirubin (Negative) Urine Urobilinogen (0.2) mg/dL Ur Leukocyte Esterase (Negative) U Hyaline Cast (Auto) (0-2) /LPF Urine Microscopic RBC (0-5) /HPF Urine Microscopic WBC (0-5) /HPF Ur Epithelial Cells (None Seen) /HPF Urine Bacteria (None Seen) /HPF Urine Culture Reflexed (NO) Urine Opiates Level NEGATIVE (NEGATIVE) Ur Methadone NEGATIVE (NEGATIVE) Urine Barbiturates NEGATIVE (NEGATIVE) Ur Phencyclidine (PCP) NEGATIVE (NEGATIVE) Urine Amphetamine NEGATIVE (NEGATIVE) U Benzodiazepine Level NEGATIVE (NEGATIVE) Urine Cocaine NEGATIVE (NEGATIVE) Urine Marijuana (THC) NEGATIVE (NEGATIVE) Chlamydia DNA Probe NOT DETECTED (NEGATIVE) N.gonorrhoeae DNA Probe NOT DETECTED (NEGATIVE) 06/27/24 Range/Units 05:16 WBC (3.98-10.04) x10^3/uL RBC (3.93-5.22) x10^6/uL Hgb (11.2-15.7) g/dL Hct (34.1-44.9) % MCV (79.4-94.8) fL MCH (25.6-32.2) pg MCHC (32.2-35.5) g/dL RDW (11.7-14.4) % Plt Count (182-369) x10^3/uL MPV (9.4-12.3) fL Gran % (34.0-71.1) % Immature Gran % (Auto) (0.001-0.429) % Nucleat RBC Rel Count (0.00-0.2) % Eos # (Auto) (0.04-0.36) x10^3/uL Immature Gran # (Auto) (0.001-0.031) x10^3u/L Absolute Lymphs (auto) (1.18-3.74) x10^3/uL Absolute Monos (auto) (0.24-0.86) x10^3/uL Absolute Nucleated RBC (0.00-0.012) x10^3u/L Lymphocytes % (19.3-51.7) % Monocytes % (4.7-12.5) % Eosinophils % (0.7-5.8) % Basophils % (0.1-1.2) % Absolute Granulocytes (1.56-6.13) x10^3/uL Basophils # (0.01-0.08) x10^3/uL Sodium (135-145) mmol/L Potassium (3.5-5.1) mmol/L Chloride (98-107) mmol/L Carbon Dioxide (22-30) mmol/L Anion Gap (5-15) MEQ/L BUN (7-17) mg/dL Creatinine (0.52-1.04) mg/dL Estimated GFR ML/MIN Glucose (74-106) mg/dL Lactic Acid (0.4-2.0) Calcium (8.4-10.2) mg/dL Total Bilirubin (0.2-1.3) mg/dL AST (14-36) U/L ALT (0-35) U/L Alkaline Phosphatase (38-126) U/L Serum Total Protein (6.3-8.2) g/dL Albumin (3.5-5.0) g/dL Lipase (23-300) U/L Serum HCG, Qual (NEGATIVE) Urine Color Yellow (Yellow) Urine Appearance Cloudy A (Clear) Urine pH 8.0 (4.6-8.0) Ur Specific [place] 1.015 (1.005-1.030) Urine Protein Negative (Negative) Urine Glucose (UA) Negative (Negative) mg/dL Urine Ketones Negative (Negative) Urine Blood Negative (Negative) Urine Nitrite Negative (Negative) Urine Bilirubin Negative (Negative) Urine Urobilinogen 0.2 (0.2) mg/dL Ur Leukocyte Esterase Small A (Negative) U Hyaline Cast (Auto) NONE SEEN (0-2) /LPF Urine Microscopic RBC 0-2 (0-5) /HPF Urine Microscopic WBC 11-20 A (0-5) /HPF Ur Epithelial Cells Moderate A (None Seen) /HPF Urine Bacteria Moderate A (None Seen) /HPF Urine Culture Reflexed YES (NO) Urine Opiates Level (NEGATIVE) Ur Methadone (NEGATIVE) Urine Barbiturates (NEGATIVE) Ur Phencyclidine (PCP) (NEGATIVE) Urine Amphetamine (NEGATIVE) U Benzodiazepine Level (NEGATIVE) Urine Cocaine (NEGATIVE) Urine Marijuana (THC) (NEGATIVE) Chlamydia DNA Probe (NEGATIVE) N.gonorrhoeae DNA Probe (NEGATIVE) <WENDY VELA - Last Filed: 06/27/24 06:10> - Progress Progress: improved Counseled pt/family regarding: lab results, diagnosis <DUTCH VILLA - Last Filed: 06/27/24 18:43> - Progress Progress Note: 06/27/24 06:13 Abdominal Pain Severe pain under the right rib cage radiating to the back for the past 3-4 days. Associated with vomiting, especially after eating. No relief with Tylenol or Aleve. Physical exam suggestive of gallbladder pathology. -Order abdominal CT scan to evaluate gallbladder. -CBC, CMP, Lipase ordered -1L NS bolus -Droperidol given for abd pain and nausea due to current use of Suboxone. Urinary Tract Infection Mild dysuria a few days ago. Urinalysis suggestive of UTI. -Start antibiotics for UTI. Opioid Dependence On Suboxone therapy. -Continue Suboxone as prescribed. -Avoid opiods. (WENDY VELA) 06/27/24 08:06 Patient is checked out to me at shift change from Dr. Vela with pending workup. Has pending CT, patient does not want to stay any longer and wants to leave AGAINST MEDICAL ADVICE. She does understand the risk of leaving AMA. Patient and both are involved in decision making. (DUTCH VILLA) Medical Desision Making - Diagnostic Testing Diagnostic test were ordered, analyzed, and reviewed by me: Yes - Risk of complications The pt has a mod risk of morbidity or mortality based on: Need for prescription drug management <DUTCH VILLA - Last Filed: 06/27/24 18:43> <WENDY VELA - Last Filed: 06/27/24 06:10> - Departure Departure Disposition: AMA Critical Care Time: No <DUTCH VILLA - Last Filed: 06/27/24 18:43> - Departure Clinical Impression: Upper abdominal pain Condition: Stable Referrals: GEE YEUNG NP [Primary Care Provider] - Follow up/PCP as directed
[2024-06-27] MEDS ORDERED: ROCEPHIN 1 GM / 100 ML NaCl 1 GM/100 ML IVPB IV ONE (06:18)
[2024-06-27] MEDS ORDERED: Sodium Chloride 0.9% 1000 ML 1,000 ML ONE (06:18)
[2024-06-27] MEDS: Sodium Chloride 0.9% 1000 ML 1,000 ML IV STA (06:19)
[2024-06-27] MEDS: ROCEPHIN 1 GM / 100 ML NaCl 1 GM/100 ML IVPB IV ONE (06:19)
[2024-06-27 06:44] LABS: Absolute Neutrophil Ct (ANC) 7.73 x10^3/uL (1.56-6.13); BASOPHIL % 0.9 % (0.1-1.2); Eosinophil % 5.2 % (0.7-5.8); Hematocrit 39.2 % (34.1-44.9); Hemoglobin 13.5 g/dL (11.2-15.7); IMMATURE GRAN # 0.04 x10^3u/L (0.001-0.031); IMMATURE GRAN % 0.3 % (0.001-0.429); Lymphocytes % 22.4 % (19.3-51.7); Mean Cell Volume 94.7 fL (79.4-94.8); Mean Corpuscular Hemoglobin 32.6 pg (25.6-32.2); Mean Corpuscular Hgb Concent. 34.4 g/dL (32.2-35.5); Mean Platelet Volume 11.3 fL (9.4-12.3); Monocyte (Absolute #) 0.55 x10^3/uL (0.24-0.86); Monocytes % 4.7 % (4.7-12.5); Neutrophil % 66.5 % (34.0-71.1); Platelet Count 238 x10^3/uL (182-369); Red Blood Count 4.14 x10^6/uL (3.93-5.22); White Blood Count 11.6 x10^3/uL (3.98-10.04)
[2024-06-27 06:53] LABS: Amphetamine,Urine NEGATIVE (NEGATIVE); Barbiturate,Urine NEGATIVE (NEGATIVE); Benzodiazepine,Urine NEGATIVE (NEGATIVE); Cocaine,Urine NEGATIVE (NEGATIVE); Methadone,Urine NEGATIVE (NEGATIVE); Opiate,Urine NEGATIVE (NEGATIVE); PCP,Urine NEGATIVE (NEGATIVE); THC,Urine NEGATIVE (NEGATIVE)
[2024-06-27 06:57] LABS: HCG SERUM TEST NEGATIVE (NEGATIVE)
[2024-06-27 07:01] LABS: ALBUMIN 4.1 g/dL (3.5-5.0); ANION GAP 14.1 MEQ/L (5-15); BILIRUBIN,TOTAL 0.5 mg/dL (0.2-1.3); Calcium 9.4 mg/dL (8.4-10.2); Creatinine 1 0.61 mg/dL (0.52-1.04); EST GLOMERULAR FILTRATION RATE 129.6 ML/MIN; Potassium 4.1 mmol/L (3.5-5.1); Total Protein 7.1 g/dL (6.3-8.2)
[2024-06-27 07:12] VITALS: BP 98/44; PULSE 78; O2SAT 97
--- NOTE | 2024-06-27 07:36 | XRAY ---
CLINICAL HISTORY: abd pain COMPARISON: None. TECHNIQUE: Non-contrast CT of the abdomen and pelvis was performed, with the following protocol: axial images, and reconstructed coronal and sagittal images. No intravenous contrast was administered. One of the following dose reduction techniques was utilized for this exam: Automated exposure control, adjustment of the mA and/or kV according to patient size, and use of iterative reconstruction. FINDINGS: Abdomen: Liver: Normal in size, shape, and density. No focal lesions, cysts, or masses were identified. Gallbladder and Biliary System: The gallbladder is normal in size and shape. No wall thickening, pericholecystic fluid, or gallstones were identified. Pancreas: Pancreatic head, body, and tail are visualized and appear normal in size and density. No pancreatic masses or calcifications were noted. Spleen: Normal in size, shape, and density. No splenic lesions or masses were identified. Kidneys and Adrenal Glands: Both kidneys are normal in size, shape, and position. Cortical thickness is within normal limits. No renal calculi or hydronephrosis. Adrenal glands are unremarkable. Appendix: The appendix is normal in size without emily appendiceal fat stranding, and without an appendicolith. No evidence of appendiceal abscess or perforation. Pelvis: Urinary Bladder: Normal in contour and wall thickness. No intraluminal lesions. Uterus: Normal in size and contour. No masses or abnormal thickening. Ovaries: Not well visualized but no gross abnormalities noted. Vagina: Normal in contour and wall thickness. Cervix: No evidence of mass or abnormal thickening. Peritoneal and Retroperitoneal Structures: No free fluid or abnormal fluid collections were identified within the abdomen or pelvis. No lymphadenopathy was noted. Bowel: Fecal loading in the colon suggestive of constipation. No evidence of bowel obstruction or wall thickening. Bones and Soft Tissues: Pelvic bones and soft tissues are unremarkable. No fractures or abnormal masses were identified. IMPRESSION: 1. No acute abnormality detected. 2. Fecal loading in the colon suggestive of constipation. Electronically Signed by: Gerardo Patton MD. (06/27/2024 07:32:36 EDT)
[2024-06-27 10:06] LABS: CHLAMYDIA DNA NOT DETECTED (NEGATIVE); GC DNA Probe NOT DETECTED (NEGATIVE)
== END 2024-06-27 07:37 | disposition left against medical advice (07) ==
LOC: ED 05:03
DX: R10.11 Right upper quadrant pain (principal); R11.2 Nausea with vomiting, unspecified; R30.0 Dysuria; Z79.891 Long term (current) use of opiate analgesic; Z72.0 Tobacco use
CPT/HCPCS: 36000; 36415; 74176; 80053; 80307; 81001; 83605; 83690; 84703; 85025; 87086; 87491; 87591; 96365; 96374; 99284; J0696